=== PATIENT | female | born 1945 | race Hispanic/Latino ===

== ENCOUNTER → 2018-10-25 | Outpatient (CLI) | payer OTHER, MEDICARE ==
[~2018-10-25] MED LIST: ALEN70TA10 PO; CALC-190 PO; OMEG300C3 PO; OXYB5TAB10 PO; ROSU10TA22 PO; SINCR25100 PO
== END | disposition home or self-care (01) ==
LOC: RAH 12:52
PROVIDERS: ATTEND Family Medicine
DX: M48.54XA Collapsed vertebra, not elsewhere classified, thoracic region, initial encounter for fracture (principal)
CPT/HCPCS: 72146

== ENCOUNTER → 2021-06-15 | Outpatient (CLI) | payer OTHER, MEDICARE ==
[~2021-06-15] MED LIST changes: -ALEN70TA10 PO; +ALEN70TA80 PO; -OXYB5TAB10 PO; +OXYB5TAB15 PO
== END ==
LOC: RAH 10:56
PROVIDERS: ATTEND Physical Medicine & Rehabilitation
DX: M50.222 Other cervical disc displacement at C5-C6 level (principal); R29.898 Other symptoms and signs involving the musculoskeletal system; G24.8 Other dystonia; M43.6 Torticollis; M47.812 Spondylosis without myelopathy or radiculopathy, cervical region
CPT/HCPCS: 72141

== ENCOUNTER → 2023-10-30 | Outpatient (CLI) | payer MEDICARE, OTHER ==
[~2023-10-30] MED LIST changes: -OXYB5TAB15 PO; +OXYB5TAB20 PO
== END | disposition home or self-care (01) ==
LOC: RAH 12:43
PROVIDERS: ATTEND Family Medicine
DX: S09.90XA Unspecified injury of head, initial encounter (principal); M47.812 Spondylosis without myelopathy or radiculopathy, cervical region; M48.02 Spinal stenosis, cervical region; X58.XXXA Exposure to other specified factors, initial encounter; Y93.89 Activity, other specified; Y92.89 Other specified places as the place of occurrence of the external cause; Y99.8 Other external cause status
CPT/HCPCS: 72125

== ENCOUNTER 2024-05-31 11:54 | Emergency (ER) | payer OTHER ==
[~2024-05-31] VITALS: Ht 149.9 cm; Wt 59.9 kg
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
[2024-05-31] MEDS: acetaMINOPHEN 500 MG TABLET PO ONE (12:40)
--- NOTE | 2024-05-31 12:42 | EKG ---
Formerly [facility] Test Date: 2024-05-31 Test Time: 12:39:06 Pat Name: IRIS GIBSON Department: ED Room: Gender: F Length Control Tester: [id number] : 1945 Requested By: MONY FELDMAN Order Number: [id number] Reading MD: Emily Mahan Measurements Intervals [place] Rate: 61 P: 41 NE: 237 QRS: 17 QRSD: 96 T: 24 QT: 398 QTc: 400 Interpretive Statements Sinus rhythm Prolonged NE interval Compared to ECG 01/02/2015 07:44:23 Sinus bradycardia no longer present Electronically Signed On 06-01-2024 17:03:19 CDT by Emily Mahan Please click the below link to view image of tracing.
--- NOTE | 2024-05-31 14:16 | HMCIMG ---
PORTABLE CHEST RADIOGRAPH INDICATION: cp COMPARISON: 07/26/2015 FINDINGS: Heart size is normal. The pulmonary vascularity and elijah appear normal. No abnormal pulmonary parenchymal opacity or consolidation identified. No significant pleural effusion noted. No pneumothorax detected. IMPRESSION: No radiographic evidence for any acute cardiopulmonary process.
[2024-05-31] MEDS ORDERED: CYCL10TA16 PO (14:47)
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
[2024-05-31 14:49] VITALS: BP 159/68; PULSE 68; RESP 14; TEMP 98.9; O2SAT 97
== END 2024-05-31 15:14 | disposition home or self-care (01) ==
LOC: EDH 11:54
DX: R07.89 Other chest pain (principal); Z79.899 Other long term (current) drug therapy; Z88.5 Allergy status to narcotic agent; Z90.710 Acquired absence of both cervix and uterus; V89.2XXA Person injured in unspecified motor-vehicle accident, traffic, initial encounter; Y93.89 Activity, other specified; Y92.488 Other paved roadways as the place of occurrence of the external cause; Y99.8 Other external cause status
CPT/HCPCS: 71045; 93005; 99283

== ENCOUNTER 2024-07-14 12:00 | Emergency (ER) | payer OTHER, MEDICAID ==
[~2024-07-14] VITALS: Ht 147.3 cm; Wt 59.9 kg
[~2024-07-14 12:00] MED LIST changes: +CYCL10TA16 PO
[2024-07-14 13:08] LABS: BASOPHILS # (AUTO) 0.03 K/uL (0.00-0.20); BASOPHILS % (AUTO) 0.7 % (0.0-5.0); EOSINOPHILS # (AUTO) 0.09 K/uL (0.00-0.70); EOSINOPHILS % (AUTO) 2.1 % (0.0-8.0); HEMATOCRIT 44.5 % (36-48); IMMATURE GRANULOCYTE ABSOLUTE 0.01 K/uL (0-1); LYMPHOCYTES # (AUTO) 0.9 K/uL (1.0-4.8); LYMPHOCYTES % (AUTO) 20.8 % (21.0-51.0); MEAN CORPUSCULAR HEMOGLOBIN 30.9 pg (27.0-33.0); MEAN CORPUSCULAR VOLUME 93.5 fL (79-99); MONOCYTES # (AUTO) 0.4 K/uL (0.1-1.0); MONOCYTES % (AUTO) 9.7 % (3.0-13.0); NEUTROPHILS # (AUTO) 2.9 K/uL (1.8-7.7); NEUTROPHILS % (AUTO) 66.5 % (40.0-77.0); PLATELET COUNT (AUTO) 192 K/uL (130-400); RED BLOOD CELL COUNT(AUTO) 4.76 MIL/uL (4.00-5.50); RED CELL DISTRIBUTION WIDTH 13.2 % (11.0-15.5); WHITE BLOOD COUNT (AUTO) 4.3 K/uL (4.8-10.8)
[2024-07-14 13:16] LABS: CREATININE 0.6 mg/dL (0.5-1.0); POTASSIUM 3.8 mmol/L (3.5-5.1)
[2024-07-14 13:21] LABS: ALBUMIN 3.4 g/dL (3.5-5.0); BILIRUBIN,TOTAL 1.7 mg/dL (0.2-1.0); TOTAL PROTEIN, SERUM 6.4 g/dL (6.0-8.3)
[2024-07-14 13:30] LABS: APPEARANCE,URINE CLEAR (CLEAR); BILIRUBIN,URINE NEGATIVE (NEGATIVE); COLOR,URINE YELLOW (YELLOW); GLUCOSE, URINE (UA) NEGATIVE (NEGATIVE); KETONES,URINE NEGATIVE (NEGATIVE); LEUKOCYTE ESTERASE ,URINE 75 Leu/uL (NEGATIVE); NITRATE,URINE 1+ (NEGATIVE); OCCULT BLOOD,URINE NEGATIVE (NEGATIVE); PH,URINE 5.5 (5.0-8.0); PROTEIN,URINE NEGATIVE (NEGATIVE); UROBILINOGEN,URINE 0.2 mg/dL (0.2-1.0)
[2024-07-14 13:40] LABS: ADD UA MICROSCOPIC YES
[2024-07-14 13:45] LABS: BACTERIA,URINE RARE /HPF (None Seen); MUCUS,URINE RARE LPF (None Seen); SQUAMOUS EPITHELIAL CELL,UR RARE /HPF (0-2)
[2024-07-14] MEDS ORDERED: CEPH500B PO (14:08)
--- NOTE | 2024-07-14 14:08 | ERN ---
ED Note History of Present Illness Stated Complaint: JITTERY,STAGGERING WHEN WALK,LOSS OF BALANCE Chief Complaint: Multiple Complaints Time Seen by MD: 12:16 Time Seen by Midlevel: 12:17 Dictation: 79-year-old female presents to the emergency department due to reported having generalized body aches and foul-smelling urine that was noted yesterday. There is no confirmed fever or chills associated with this. At this time, she denies having any abdominal pain or flank pain along with this. Patient states that she believes that she might have a urinary tract infection and that it might be contributing to this. She states that she does have a history of dystonia for which she has been following up with a neurologist. Upon initial evaluation, the patient presents with a normal neurologic examination. Allergies: Coded Allergies: codeine (Unverified Allergy, Unknown, 07/03/14) Home Meds Active Scripts Cyclobenzaprine HCl (Flexeril) 10 Mg Tab, 5 MG PO TID for muscle sstiffness, #7 TAB 0 Refills Prov:MONY FELDMAN OVERLOCK OPERATOR 05/31/24 Reported Medications Calcium Carbonate/Vitamin D3 (Calcium + Vitamin D Tablet) 1 Each Tablet, 1 EACH PO BID, TAB 07/03/14 [place]-3 Fatty Acids (Fish Oil) 300 Mg Capsule, PO BID, CAP 07/03/14 Carbidopa/Levodopa (Sinemet Cr-25 mg/100 mg) 1 Tab Crtab, 1 TAB PO HS, TAB 07/03/14 Rosuvastatin Calcium (Crestor) 10 Mg Tablet, 10 MG PO HS, TAB 07/03/14 Oxybutynin Chloride (Oxybutynin Chloride) 5 Mg Tablet, 5 MG PO BID, TAB 07/03/14 Alendronate Sodium (Alendronate Sodium) 70 Mg Tablet, 70 MG PO qmonday, TAB 07/03/14 Past Medical History Past Medical History: No Pertinent History Additional Past Medical Hx: denies pmhx Surgical History: Hysterectomy, Other Surgical History Other: spine sx, PSYCH History: no pertinent psych hx RN Note Reviewed/Agreed w/PFSH: Yes Review of System Dictation Constitutional: Body aches : Foul-smelling urine Initial Vital Sign VS Vital Signs Date Time Temp Pulse Resp B/P (MAP) Pulse Ox O2 Delivery O2 Flow Rate FiO2 07/14/24 12:04 97.0 66 16 143/66 97 Room Air 0 07/14/24 12:11 21 Physical Exam Dictation General: awake, alert, NAD Head/Face: Normocephalic, atraumatic Eyes: PERRL, EOMI ENT: Oral mucosa moist Neck: Trachea midline, supple Cardiovascular: RRR, no edema Respiratory: Symmetrical, non-labored Abdomen: Soft, non-tender, non-distended, no guarding. Skin: Warm, dry, good turgor, no rash MS/Extremity: Pulses equal, no cyanosis, neurovascular intact, FROM Neuro: COAx4, GCS 15, steady gait, Psych: Normal behavior, mood, and affect normal Results (Laboratory/Radiology) Laboratory/Radiology Laboratory Tests Test 07/14/24 13:01 07/14/24 13:13 White Blood Count 4.3 K/uL (4.8-10.8) L Red Blood Count 4.76 MIL/uL (4.00-5.50) Hemoglobin 14.7 g/dL (12.0-16.0) Hematocrit 44.5 % (36-48) Mean Corpuscular Volume 93.5 fL (79-99) Mean Corpuscular Hemoglobin 30.9 pg (27.0-33.0) Mean Corpuscular Hemoglobin Concent 33.0 g/dL (32.0-36.0) Red Cell Distribution Width 13.2 % (11.0-15.5) Platelet Count 192 K/uL (130-400) Mean Platelet Volume 11.1 fL (7.5-10.5) H Immature Granulocyte % (Auto) 0.2 % (0-1) Neutrophils (%) (Auto) 66.5 % (40.0-77.0) Lymphocytes (%) (Auto) 20.8 % (21.0-51.0) L Monocytes (%) (Auto) 9.7 % (3.0-13.0) Eosinophils (%) (Auto) 2.1 % (0.0-8.0) Basophils (%) (Auto) 0.7 % (0.0-5.0) Neutrophils # (Auto) 2.9 K/uL (1.8-7.7) Lymphocytes # (Auto) 0.9 K/uL (1.0-4.8) L Monocytes # (Auto) 0.4 K/uL (0.1-1.0) Eosinophils # (Auto) 0.09 K/uL (0.00-0.70) Basophils # (Auto) 0.03 K/uL (0.00-0.20) Absolute Immature Granulocyte (auto 0.01 K/uL (0-1) Nucleated Red Blood Cells 0.0 % (0.0-0.19) Sodium Level 145 mmol/L (136-145) Potassium Level 3.8 mmol/L (3.5-5.1) Chloride Level 110 mmol/L (101-111) Carbon Dioxide Level 31 mmol/L (21-32) Blood Urea Nitrogen 16 mg/dL (7-18) Creatinine 0.6 mg/dL (0.5-1.0) Glomerular Filtration Rate Calc 92 mL/min (>90) Random Glucose 86 mg/dL (70-105) Total Calcium 9.6 mg/dL (8.5-10.1) Total Bilirubin 1.7 mg/dL (0.2-1.0) H Aspartate Amino Transf (AST/SGOT) 21 U/L (10-37) Alanine Aminotransferase (ALT/SGPT) 24 U/L (12-78) Alkaline Phosphatase 77 U/L (50-136) Troponin I High Sensitivity 4 ng/L (4-50) Total Protein 6.4 g/dL (6.0-8.3) Albumin 3.4 g/dL (3.5-5.0) L Urine Color YELLOW (YELLOW) Urine Appearance CLEAR (CLEAR) Urine pH 5.5 (5.0-8.0) Urine Specific Delta 1.018 (1.001-1.031) Urine Protein NEGATIVE mg/dL (NEGATIVE) Urine Glucose (UA) NEGATIVE mg/dL (NEGATIVE) Urine Ketones NEGATIVE mg/dL (NEGATIVE) Urine Occult Blood NEGATIVE (NEGATIVE) Urine Nitrate 1+ (NEGATIVE) H Urine Bilirubin NEGATIVE mg/dL (NEGATIVE) Urine Urobilinogen 0.2 mg/dL (0.2-1.0) Urine Leukocyte Esterase 75 Dima/uL (NEGATIVE) H Urine RBC 2-5 /HPF (0-1) H Urine WBC 11-25 /HPF (0-1) H Urine Squamous Epithelial Cells RARE /HPF (0-2) Urine Bacteria RARE /HPF (None Seen) Labs Reviewed?: Yes ED Course ED Course Orders Procedure Category Date Status Time Troponin I High LAB 07/14/24 Complete Sensitivity 12:29 Cbc With Differential LAB 07/14/24 Complete 12:29 Comprehensive LAB 07/14/24 Complete Metabolic Panel 12:29 Urinalysis Profile LAB 07/14/24 Complete 12:29 Culture Urine LINA 07/14/24 In Process 13:40 Vital Signs Date Time Temp Pulse Resp B/P (MAP) Pulse Ox O2 Delivery O2 Flow Rate FiO2 07/14/24 13:23 70 16 114/70 99 Room Air* 0 21 07/14/24 12:11 97.0 66 16 143/66 97 Room Air* 0 21 07/14/24 12:04 97.0 66 16 143/66 97 Room Air 0 Medical Decision Making MDM MDM: Differential diagnosis: Acute UTI, acute pyelonephritis, electrolyte imbalance, acute dehydration Rationale: Tests considered and ordered secondary to shared decision making include: Previous outside records reviewed: Old ER visits. Risk of complication and/or morbidity or mortality of patient management: None Medications-Per medication reconciliation Need for hospitalization: Patient does not meet criteria for hospitalization. Need for emergency major/minor surgery: No There are no social concerns with this patient. Prescription drug management Prescriptions will include symptomatic care Patient's prior external medical records from other ER visits were reviewed by me as indicated. Prior testing and results from previous visits were reviewed. Prior tests were taken into account with medical decision making and resource utilization, independent historian/historians were used to obtain complete medical history. I independently interpreted the test that were performed, results were reviewed by me and considered findings on radiology if ordered. Medical management and examination interpretation discussions were had by me with other qualified healthcare professionals as indicated for the patient's care. DX & DISP Disposition: Discharge Departure Impression: Primary Impression: Acute UTI Additional Impression: History of dystocia Condition: Stable Scripts Cephalexin Monohydrate (Keflex) 500 Mg Cap 250 MG PO BID for 7 Days, #14 CAP Prov: LAURY LOVE 07/14/24 Referrals: SOCRATES VINSON (PCP) LAURY LOVE Jul 14, 2024 14:08
[2024-07-14 14:37] VITALS: BP 115/63; PULSE 65; RESP 16; TEMP 97; O2SAT 97
== END 2024-07-14 14:45 | disposition home or self-care (01) ==
LOC: EDH 12:00
DX: N39.0 Urinary tract infection, site not specified (principal); Z88.5 Allergy status to narcotic agent; Z90.710 Acquired absence of both cervix and uterus
CPT/HCPCS: 36415; 80053; 81001; 84484; 85025; 87086; 87186; 99283